=== PATIENT | male | born 1950 | race Hispanic/Latino ===

== ENCOUNTER 2017-10-08 07:22 | Emergency (ER) | payer MEDICARE, MEDICAID ==
[2017-10-08 07:23] VITALS: BMI 33.9
--- NOTE | 2017-10-08 08:29 | C.PDOC ---
History Of Present Illness REFERRED BY DR Shon MURRELL FOR POSSIBLE "PROSTATE PROBLEM". INCR URINARY FREQ X 6- 7 YRS BUT WORSENING X 1 WEEK. S/P PSA IN 08/2017, ELEVATED. PS PREV POSSIBLE [place] SE[facility] YEARS AGO @ [facility], "IT WAS NORMAL". NO FEVER, UTI SX, ABD PAIN, CONCERN FOR RETENTION. DENIES URINARY INCONTINENCE ALSO CO INCR BS TODAY, BASELINE AT 120. COMPLIANT W HIS MEDS EXAM APPEARS COMFORTABLE ABD SOFT NT ND NO R/G REMAINDER NEG Time Seen by Provider: 10/08/17 08:14 Chief Complaint (Nursing): Male Genitourinary History Per: Patient History/Exam Limitations: no limitations Onset/Duration Of Symptoms: Days Current Symptoms Are (Timing): Still Present Severity: Moderate Past Medical History Reviewed: Historical Data, Nursing Documentation, Vital Signs Vital Signs: Last Vital Signs Temp 98.7 F 10/08/17 08:00 Pulse 61 10/08/17 08:00 Resp 20 10/08/17 08:00 BP 133/80 10/08/17 08:00 Pulse Ox 95 10/08/17 09:20 - Medical History PMH: COPD, Depression, HTN Other Surgeries: Hx of surgeries - [facility] Procedures INJECT/INFUSE NEC (06/18/12) NEBULIZER THERAPY (06/18/12) OTHER LOCAL DESTRUC SKIN (10/27/05) PEDICLE GRAFT/FLAP NOS (11/16/05) RADICAL EXCIS SKIN LES (11/16/05) SKIN & SUBQ BIOPSY (11/16/05) Family History: States: No Known Family Hx - Social History Hx Tobacco Use: Yes Hx Alcohol Use: No Hx Substance Use: No - Immunization History Hx Influenza Vaccination: Yes Review Of Systems Except As Marked, All Systems Reviewed And Found Negative. Constitutional: Negative for: Fever, Chills Gastrointestinal: Negative for: Abdominal Pain Genitourinary: Positive for: Frequency. Negative for: Incontinence Physical Exam - Physical Exam Appears: Non-toxic, No Acute Distress, Other (comfortable) Skin: Normal Color, Warm Head: Atraumatic, Normacephalic Eye(s): bilateral: Normal Inspection Gastrointestinal/Abdominal: Normal Exam, Soft, No Tenderness, No Distention, No Guarding, No Rebound Male Genital: Normal Inspection Neurological/Psych: Oriented x3, Normal Speech, Normal Motor, Normal Sensation ED Course And Treatment - Laboratory Results Result Diagrams: 10/08/17 09:16 10/08/17 09:16 O2 Sat by Pulse Oximetry: 95 (RA) Pulse Ox Interpretation: Normal Progress - Re-Evaluation Re-evaluation Note: 10/08/17 08:55 BLADDER SCAN POST VOID AVG 400 CC. PS DOESNT FEEL URGE TO URINATE. REQUESTING STRAIGHT CATH. 10/08/17 08:57 D/W DR Shon MURRELL. REQUESTING PSA. WILL EVAL IN ER 10/08/17 09:20 SP MOYA, NO UO. 10/08/17 10:[address] Shon MURRELL, CLEARED FOR OUTPT FU - Data Reviewed Data Reviewed: Lab, Diagnostic imaging - Continuity of Care Discussed patient case with:: Patient Discussed pt. case with safety consultant/specialty: Urology Medical Decision Making Medical Decision Making: Plan: --Labs --UA --PSA --Bladder Scan Disposition Counseled Patient/Family Regarding: Studies Performed, Diagnosis, Need For Followup - Disposition Referrals: Fidelina Murrell MD [Staff Provider] - Disposition: HOME/ ROUTINE Disposition Time: 10:48 Condition: GOOD Instructions: Benign Prostatic Hyperplasia (Enlarged Prostate) Forms: [employer] (Belarusian) - Clinical Impression Clinical Impression: Polyuria, Abnormal PSA - Scribe Statement The provider has reviewed the documentation as recorded by the Bhupinderibe Marek Garcia Provider Attestation: All medical record entries made by the Bhupinderibe were at my direction and personally dictated by me. I have reviewed the chart and agree that the record accurately reflects my personal performance of the history, physical exam, medical decision making, and the department course for this patient. I have also personally directed, reviewed, and agree with the discharge instructions and disposition.
[2017-10-08 09:24] LABS: BASO # 0.1 K/uL (0.0-0.2); BASO % 0.7 % (0.0-2.0); EOS # 0.2 K/uL (0.0-0.7); EOS % 2.5 % (0.0-4.0); HEMOGLOBIN 13.4 g/dL (12.0-18.0); LYMPH # 1.8 K/uL (1.0-4.3); MEAN CELL VOLUME 88.2 fL (80.0-94.0); MEAN CORPUSCULAR HEMOGLOBIN 30.4 pg (27.0-31.0); MEAN CORPUSCULAR HGB CONC 34.5 g/dL (33.0-37.0); MEAN PLATELET VOLUME 6.6 fL (7.2-11.7); MONO # 0.9 K/uL (0.0-0.8); MONO % 11.6 % (0.0-10.0); NEUT # 5.1 K/uL (1.8-7.0); NEUT % 63.2 % (50.0-75.0); RBC 4.41 Mil/uL (4.40-5.90); RED CELL DISTRIBUTION WIDTH 13.7 % (11.5-14.5); WHITE BLOOD COUNT 8.1 K/uL (4.8-10.8)
[2017-10-08 09:35] LABS: VENOUS BLOOD GAS PCO2 47 mmHg (40-60); VENOUS BLOOD GAS PO2 35 mm/Hg (30-55); VENOUS BLOOD PH 7.38 (7.32-7.43)
[2017-10-08 09:37] LABS: BLOOD UREA NITROGEN 18 mg/dL (9-20); CALCIUM 9.6 mg/dl (8.6-10.4); GFR AFRICAN-AMERICAN > 60; GFR NON-AFRICAN AMERICAN > 60
[2017-10-08 10:02] LABS: SQUAMOUS EPITHIAL < 1 /hpf (0-5); URINE BILIRUBIN NEGATIVE (NEGATIVE); URINE BLOOD 3+ (NEGATIVE); URINE CLARITY Clear (Clear); URINE COLOR Yellow (YELLOW); URINE GLUCOSE (UA) 1+ mg/dL (Normal); URINE LEUKOCYTE ESTERASE NEG Leu/uL (Negative); URINE NITRATE NEGATIVE (NEGATIVE); URINE PROTEIN NEGATIVE (NEGATIVE); URINE UROBILINOGEN NORMAL mg/dL (0.2-1.0)
[2017-10-08 11:39] VITALS: BP 123/75; PULSE 66; RESP 18; TEMP 98.1; O2SAT 96
--- NOTE | 2017-10-09 10:18 | C.PDOC ---
History Of Present Illness Urology Consultation IMP: elevated psa full note t/f Time Seen by Provider: 10/08/17 08:14 Chief Complaint (Nursing): Male Genitourinary Past Medical History Vital Signs: Last Vital Signs Temp 98.1 F 10/08/17 11:30 Pulse 66 10/08/17 11:30 Resp 18 10/08/17 11:30 BP 123/75 10/08/17 11:30 Pulse Ox 96 10/08/17 11:30 - Medical History PMH: COPD, Depression, HTN Other Surgeries: Hx of surgeries - [facility] Procedures INJECT/INFUSE NEC (06/18/12) NEBULIZER THERAPY (06/18/12) OTHER LOCAL DESTRUC SKIN (10/27/05) PEDICLE GRAFT/FLAP NOS (11/16/05) RADICAL EXCIS SKIN LES (11/16/05) SKIN & SUBQ BIOPSY (11/16/05) Family History: States: No Known Family Hx - Social History Hx Tobacco Use: Yes Hx Alcohol Use: No Hx Substance Use: No - Immunization History Hx Influenza Vaccination: Yes ED Course And Treatment - Laboratory Results Result Diagrams: 10/08/17 09:16 10/08/17 09:16 O2 Sat by Pulse Oximetry: 96 Disposition - Disposition Referrals: Fidelina Murrell MD [Staff Provider] - Disposition: HOME/ ROUTINE Disposition Time: 10:55 Condition: GOOD Instructions: Benign Prostatic Hyperplasia (Enlarged Prostate) Forms: [employer] (Kittitian) - Clinical Impression Clinical Impression: Polyuria, Abnormal PSA
--- NOTE | 2017-10-12 08:52 | CON ---
DATE: 10/08/2017 UROLOGY CONSULTATION Urology consultation is addressed by the [facility] and the [facility]. REASON FOR CONSULTATION: Elevated PSA. IDENTIFICATION: The patient is 67-year-old male with elevated PSA. The patient is in otherwise fair health. The patient voids with good urinary stream, good control. The patient has urinary frequency. The patient reports nocturia. Mr. Kendall reports no incontinence. No hematuria. No recent fever or rigors. Occasional abdominal pain. No history of urinary tract infection or calculus. The patient has history of elevated PSA in the past. He reports that previously he has undergone prostate biopsy. He reports that he was found to have benign prostatic enlargement. The patient is currently comfortable with voiding. The patient has good appetite. He reports no recent diarrhea, hematochezia, or melena. The patient has a history of cardiovascular disease. The patient also has history of incomplete bladder emptying. He has voiding dysfunction, which has improved with treatment with tamsulosin. PHYSICAL EXAMINATION: GENERAL: The patient is a well-developed, well-nourished male appearing his stated age. Patient is awake and alert. The patient is overweight. ABDOMEN: Soft. Mildly distended. No mass or organomegaly. BACK: No CVA tenderness. GENITALIA: Without inflammation. RECTAL: Normal sphincter tone. Prostate is enlarged. Prostate is approximately 40 gm in size, without fixation, induration, or nodularity. Prostate is smooth and firm. IMPRESSION: History of elevated serum PSA. The differential diagnosis of elevated serum PSA includes benign prostatic hyperplasia, prostatic inflammation or infection, and prostate carcinoma. I reviewed the findings with the patient. PLAN/RECOMMENDATIONS: Repeat serum PSA including . Monitor renal function. Lab data pending. Possible need for prostate ultrasound and biopsy. The patient is yet to return to his [facility]. I discussed the findings with the patient as well as with the ER staff. Further therapy to follow according to results of above as well as clinical course. Thank you for recommending the patient for urology consultation. Continue tamsulosin. Medications have been reviewed as well. Fidelina Murrell MD cc: [facility]
== END 2017-10-08 11:39 | disposition home or self-care (01) ==
LOC: C.ER 07:22
DX: R35.8 Other polyuria (principal); R97.20 Elevated prostate specific antigen [PSA]